=== PATIENT | female | born 1995 | race Hispanic/Latino ===

== ENCOUNTER 2019-02-04 | Emergency (ER) | payer MEDICAID ==
[~2019-02-04] MED LIST: AMOXICILLIN/PO400 MG PO; FLOXIN OTIC0.3 % OT; TYLENOL & COD12.5 ML PO
[2019-02-04] MEDS ORDERED: EAR DROPS6.5 % OT (22:59)
[2019-02-04] MEDS ORDERED: AMOXICILLIN500 MG PO (23:30)
[2019-02-04] MEDS ORDERED: ACETIC ACID2 % OT (23:30)
== END 2019-02-04 23:37 | disposition home or self-care (01) ==
DX: H66.93 Otitis media, unspecified, bilateral (principal)

== ENCOUNTER 2019-05-25 | Emergency (ER) | payer SELFPAY ==
[~2019-05-25] MED LIST changes: +ACETIC ACID2 % OT; +AMOXICILLIN500 MG PO; +EAR DROPS6.5 % OT
[2019-05-25] MEDS ORDERED: ACETIC ACID2 % AS (20:42)
== END 2019-05-25 20:56 | disposition home or self-care (01) | DRG 156 ==
DX: H60.92 Unspecified otitis externa, left ear (principal)

== ENCOUNTER 2020-02-06 13:50 | Emergency (ER) | payer SELFPAY ==
[~2020-02-06] VITALS: Ht 155.4 cm; Wt 85.0 kg
[~2020-02-06 13:50] MED LIST changes: +ACETIC ACID2 % AS
[2020-02-06 14:34] LABS: HEMATOCRIT 38.9 % (37.0-47.0); HEMOGLOBIN 12.3 g/dl (12.0-16.0); IMMATURE GRANULOCYTES 0.4 % (0.0-5.0); MEAN CELL VOLUME 86.6 fL CALC (80.0-100.0); MEAN CORPUSCULAR HGB 27.4 pG CALC (26.0-32.0); MEAN CORPUSCULAR HGB CONC 31.6 g/dL CAL (32.0-36.0); NEUT# 3.43 thou/uL (2.00-7.15); RED BLOOD COUNT 4.49 mill/uL (4.20-5.60); RED CELL DISTRI WIDTH 12.9 % (11.5-15.5)
[2020-02-06 14:48] LABS: ACT PARTIAL THROMBO TIME 24.1 SECONDS (20.0-32.5); PROTHROMBIN TIME 9.9 SECONDS (9.0-12.5)
[2020-02-06 14:49] LABS: ALBUMIN 4.6 g/dL (3.2-5.0); ALKALINE PHOSPHATASE 108 u/l (38-126); ANION GAP 13 (6-22 (CALC)); BILIRUBIN, TOTAL 0.5 mg/dL (0.0-1.4); BUN 12 mg/dL (7-17); BUN/CREATININE RATIO 23 (12-20 (CALC)); CARBON DIOXIDE 25 mmol/l (22-30); CHLORIDE 109 mmol/l (95-108); CREATININE 0.5 mg/dL (0.5-1.0); ETHYL ALCOHOL 0 mg/dl (0-30); GFR > 60 ML/MIN (>=60 (CALC)); GFR FOR AFR.AMER. > 60 ML/MIN (>=60 (CALC)); POTASSIUM 3.6 mmol/l (3.5-5.1); SGOT/AST 50 u/l (14-36); SODIUM 143 mmol/l (137-146); TOTAL PROTEIN 7.7 g/dL (6.3-8.2)
[2020-02-06 15:23] LABS: URINE BLOOD DIPSTICK LARGE (NEGATIVE); URINE GLUCOSE - DIPSTICK NEGATIVE (NEGATIVE); URINE KETONE NEGATIVE (NEGATIVE); URINE LEUK ESTERASE NEGATIVE (Negative); URINE NITRITE - DIPSTICK POSITIVE (Negative); URINE PH 5.5 (4.5-8.0); URINE PROTEIN - DIPSTICK 100 mg/dL (NEG-TRACE); URINE SPECIFIC GRAVITY >=1.030; URINE UROBILINOGEN - DIPSTICK 0.2 E.U./dL (0.2)
[2020-02-06 15:28] LABS: URINE BILIRUBIN - DIPSTICK SMALL (NEGATIVE)
[2020-02-06 15:29] LABS: URINE CLARITY BLOODY; URINE COLOR RED; URINE RBC 50-100 RBC/hpf (0-5)
[2020-02-06 15:30] LABS: URINE BACTERIA FEW hpf; URINE EPITHELIAL CELLS FEW EPI/hpf (0-FEW)
[2020-02-06] MEDS ORDERED: KEFLEX500 MG PO (17:19)
[2020-02-06] MEDS ORDERED: HYDROCO/APAP1 TA9 PO (17:19)
[2020-02-06 17:35] VITALS: BP 109/64
== END 2020-02-06 17:35 | disposition home or self-care (01) | DRG 605 ==
LOC: ED 13:50
PROC: 0HQJXZZ Repair Left Upper Leg Skin, External Approach (ICD-10-PCS; principal; 2020-02-06)
DX: S71.112A Laceration without foreign body, left thigh, initial encounter (principal); S00.93XA Contusion of unspecified part of head, initial encounter; S30.0XXA Contusion of lower back and pelvis, initial encounter; S40.012A Contusion of left shoulder, initial encounter; S40.812A Abrasion of left upper arm, initial encounter; S40.212A Abrasion of left shoulder, initial encounter; S60.812A Abrasion of left wrist, initial encounter; S80.212A Abrasion, left knee, initial encounter; V86.55XA Driver of 3- or 4- wheeled all-terrain vehicle (ATV) injured in nontraffic accident, initial encounter; Y93.I9 Activity, other involving external motion; Y92.410 Unspecified street and highway as the place of occurrence of the external cause
CPT/HCPCS: Q9967

== ENCOUNTER 2020-02-17 08:54 | Emergency (ER) | payer OTHER ==
[~2020-02-17] VITALS: Ht 154.9 cm; Wt 78.0 kg
[~2020-02-17 08:54] MED LIST changes: +HYDROCO/APAP1 TA9 PO; +KEFLEX500 MG PO
[2020-02-17] MEDS ORDERED: DOXYCYCL HYC100 M4 PO (09:23)
[2020-02-17 10:10] VITALS: BP 120/72
== END 2020-02-17 10:16 | disposition home or self-care (01) ==
LOC: ED 08:54
DX: S71.112D Laceration without foreign body, left thigh, subsequent encounter (principal); X58.XXXD Exposure to other specified factors, subsequent encounter

== ENCOUNTER 2021-01-26 20:01 | Emergency (ER) | payer SELFPAY ==
[~2021-01-26] VITALS: Ht 154.9 cm; Wt 81.0 kg
[~2021-01-26 20:01] MED LIST changes: +DOXYCYCL HYC100 M4 PO
[2021-01-26 20:49] LABS: HEMATOCRIT 41.7 % (37.0-47.0); HEMOGLOBIN 13.8 g/dl (12.0-16.0); IMMATURE GRANULOCYTES 0.1 % (0.0-5.0); MEAN CELL VOLUME 86.2 fL CALC (80.0-100.0); MEAN CORPUSCULAR HGB 28.5 pG CALC (26.0-32.0); MEAN CORPUSCULAR HGB CONC 33.1 g/dL CAL (32.0-36.0); NEUT# 8.47 thou/uL (2.00-7.15); RED BLOOD COUNT 4.84 mill/uL (4.20-5.60); RED CELL DISTRI WIDTH 12.4 % (11.5-15.5)
[2021-01-26 20:50] LABS: URINE BLOOD DIPSTICK TRACE-INTACT (NEGATIVE); URINE COLOR YELLOW; URINE GLUCOSE - DIPSTICK NEGATIVE (NEGATIVE); URINE KETONE NEGATIVE (NEGATIVE); URINE LEUK ESTERASE NEGATIVE (NEGATIVE); URINE PROTEIN - DIPSTICK NEGATIVE (NEG-TRACE); URINE SPECIFIC GRAVITY >=1.030; URINE UROBILINOGEN - DIPSTICK 0.2 E.U./dL (0.2)
[2021-01-26 20:55] LABS: URINE BILIRUBIN - DIPSTICK NEGATIVE (NEGATIVE); URINE NITRITE - DIPSTICK NEGATIVE (Negative)
[2021-01-26 20:55] LABS: HCG SERUM/URINE (NEG/POS) NEGATIVE (NEGATIVE)
[2021-01-26 21:05] LABS: ALBUMIN 4.8 g/dL (3.2-5.0); ALKALINE PHOSPHATASE 115 u/l (38-126); AMYLASE 69 u/l (30-110); ANION GAP 17 (6-22 (CALC)); BUN 8 mg/dL (7-17); BUN/CREATININE RATIO 13 (12-20 (CALC)); CARBON DIOXIDE 23 mmol/l (22-30); CHLORIDE 103 mmol/l (95-108); CREATININE 0.6 mg/dL (0.5-1.0); GFR > 60 ML/MIN (>=60 (CALC)); GFR FOR AFR.AMER. > 60 ML/MIN (>=60 (CALC)); LIPASE 40 u/l (23-300); POTASSIUM 3.4 mmol/l (3.5-5.1); SODIUM 140 mmol/l (137-146); TOTAL PROTEIN 8.8 g/dL (6.3-8.2)
[2021-01-26 21:06] LABS: SGOT/AST 110 u/l (14-36)
[2021-01-26] MEDS ORDERED: TAM75CAP PO (21:47)
[2021-01-26 21:50] VITALS: BP 111/66
== END 2021-01-26 21:50 | disposition home or self-care (01) | DRG 195 ==
LOC: ED 20:01
DX: J10.1 Influenza due to other identified influenza virus with other respiratory manifestations (principal); Z86.16 Personal history of COVID-19; Z20.822 Contact with and (suspected) exposure to COVID-19

== ENCOUNTER 2021-12-20 08:56 | Emergency (ER) | payer MEDICAID ==
[~2021-12-20] VITALS: Ht 154.9 cm; Wt 84.0 kg
[~2021-12-20 08:56] MED LIST changes: +TAM75CAP PO
[2021-12-20] MEDS ORDERED: MOTRIN800 MG PO (09:49)
[2021-12-20 10:02] VITALS: BP 113/70
== END 2021-12-20 10:07 | disposition home or self-care (01) ==
LOC: ED 08:56
DX: H92.13 Otorrhea, bilateral (principal); H92.03 Otalgia, bilateral; Z86.16 Personal history of COVID-19

== ENCOUNTER 2022-04-20 01:38 | Emergency (ER) | payer OTHER ==
[~2022-04-20] VITALS: Ht 154.9 cm; Wt 91.0 kg
[~2022-04-20 01:38] MED LIST changes: +MOTRIN800 MG PO
[2022-04-20 03:40] VITALS: BP 124/56
== END 2022-04-20 03:41 | disposition home or self-care (01) ==
LOC: ED 01:38
DX: O99.519 Diseases of the respiratory system complicating pregnancy, unspecified trimester (principal); J06.9 Acute upper respiratory infection, unspecified; Z3A.00 Weeks of gestation of pregnancy not specified; Z86.16 Personal history of COVID-19; Z20.822 Contact with and (suspected) exposure to COVID-19

== ENCOUNTER 2022-11-13 20:17 | Emergency (ER) | payer OTHER ==
[~2022-11-13] VITALS: Ht 154.9 cm; Wt 73.0 kg
[2022-11-14 00:22] LABS: URINE BLOOD DIPSTICK Negative (NEGATIVE); URINE COLOR Yellow; URINE GLUCOSE - DIPSTICK Negative (NEGATIVE); URINE KETONE Trace mg/dL (NEGATIVE); URINE LEUK ESTERASE Negative (NEGATIVE); URINE NITRITE - DIPSTICK Negative (Negative); URINE PH 5.5 (4.5-8.0); URINE PROTEIN - DIPSTICK Negative (NEG-TRACE); URINE UROBILINOGEN - DIPSTICK 0.2 E.U./dL (0.2)
[2022-11-14] MEDS ORDERED: PROMETHAZINE HY25 M1 PO (01:40)
[2022-11-14 01:50] VITALS: BP 132/74
== END 2022-11-14 01:50 | disposition home or self-care (01) ==
LOC: ED 20:17
PROVIDERS: Emergency Medicine
DX: B34.9 Viral infection, unspecified (principal); Z86.16 Personal history of COVID-19; Z20.822 Contact with and (suspected) exposure to COVID-19